=== PATIENT | female | born 1960 | race African-American/Black ===

== ENCOUNTER 2021-04-26 00:13 | Emergency (ER) | payer SELFPAY ==
[~2021-04-26] VITALS: Ht 160 cm; Wt 82.0 kg
[2021-04-26] MEDS ORDERED: HYDROCODONE/ACETAMINOPHEN 5/325MG TABLET PO ONE (03:30)
[2021-04-26] MEDS ORDERED: ENALAPRIL 5MG TABLET PO SCH (03:30)
[2021-04-26 03:59] LABS: BASOPHILS % 0.6 % (0.0-2.0); EOSINOPHILS % 0.6 % (0.0-5.0); HEMATOCRIT. 43.2 % (36.0-48.0); HEMOGLOBIN. 14.4 g/dL (12.0-16.0); LYMPHOCYTES % 29.5 % (20.0-50.0); MEAN CORPUSCULAR HEMOGLOBIN 28.7 pg (28.0-32.0); MEAN CORPUSCULAR VOLUME 86.3 fL (81.0-99.0); MEAN PLATELET VOLUME 10.6 fl (7.4-10.4); MONOCYTES % 6.2 % (2.0-8.0); NEUTROPHILS % 63.1 % (40.0-76.0); PLATELET 172 x1000/uL (130-400); RED CELL DISTRIBUTION WIDTH 13.8 % (11.6-14.6)
[2021-04-26 04:08] LABS: CHLORIDE 109 mEq/L (98-107)
[2021-04-26 06:12] VITALS: BP 124/74
[2021-04-26] MEDS ORDERED: MECL-217 MT (06:14)
[2021-04-26] MEDS ORDERED: HYDR25TA MT (06:14)
== END 2021-04-26 06:48 | disposition home or self-care (01) ==
LOC: ER 00:13
DX: I10 Essential (primary) hypertension (principal); K21.9 Gastro-esophageal reflux disease without esophagitis; Z86.73 Personal history of transient ischemic attack (TIA), and cerebral infarction without residual deficits
CPT/HCPCS: 36415; 71045; 80053; 84484; 85025; 93005; 99285